=== PATIENT | male | born 1955 | race Caucasian/White ===

== ENCOUNTER 2017-09-16 04:22 | Emergency (ER) | payer OTHER ==
[2017-09-16 04:33] VITALS: BP 170/101
[2017-09-16] MEDS ORDERED: Ondansetron 4 MG/2 ML SDV IVPUSH ONE (05:07)
[2017-09-16] MEDS ORDERED: methylPREDNISolone Sodium Succinate 125 MG/2 ML SDV IVPUSH ONE (05:07)
[2017-09-16] MEDS ORDERED: Sodium Chloride 0.9% 10 ML Syringe FLUSH PRN (05:07)
[2017-09-16] MEDS ORDERED: Sodium Chloride 0.9% 500 ML IV ONE (05:07)
[2017-09-16] MEDS ORDERED: Meclizine 12.5 MG Tab PO ONE (05:41)
--- NOTE | 2017-09-16 05:42 | EDM.PDOC ---
ED HPI GENERAL MEDICAL PROBLEM - General Chief Complaint: Gastrointestinal Problem Stated Complaint: DIZZY/SWEATING/NAUSEA Time Seen by Provider: 09/16/17 05:05 Source of Information: Reports: Patient, RN Notes Reviewed - History of Present Illness INITIAL COMMENTS - FREE TEXT/NARRATIVE: 62 old male with onset of vertigo type dizziness about 2 hours ago at home. He states he awakened with sudden onset of quite severe dizziness, nausea and even became diaphoretic for a period of time. His anus was worse to move his head, better to lie still. No does feel somewhat better on arrival to ED but still does have vertigo type dizziness with motion and still better to lie still and not move his head. No ear discomfort or tendinitis. No chest pain or difficulty breathing. The nausea is better, there's been no vomiting. - Related Data Allergies Allergy/AdvReac Type Severity Reaction Status Date / Time No Known Allergies Allergy Verified 08/21/14 15:04 Home Meds: Home Meds Travoprost [Travatan Z 0.004% Ophth Soln] 1 drop EYEBOTH BEDTIME 08/21/14 [ History] Past Medical History HEENT History: Reports: Cataract Respiratory History: Reports: Other (See Below) Other Respiratory History: nose surgery Gastrointestinal History: Reports: Colon Polyp Neurological History: Reports: Concussion, Other (See Below) Social & Family History - Family History Family Medical History: Noncontributory - Tobacco Use Smoking Status *Q: Never Smoker - Caffeine Use Caffeine Use: Reports: None - Recreational Drug Use Recreational Drug Use: No ED ROS GENERAL - Review of Systems Review Of Systems: See Below Constitutional: Reports: Diaphoresis (Gone). Denies: Fever, Chills HEENT: Denies: Ear Discharge, Ear Pain, Sinus Problem Respiratory: Denies: Shortness of Breath, Pleuritic Chest Pain Cardiovascular: Denies: Chest Pain GI/Abdominal: Reports: Nausea. Denies: Abdominal Pain, Diarrhea, Vomiting Musculoskeletal: Reports: No Symptoms Skin: Denies: Rash Neurological: Denies: Numbness, Tingling, Trouble Speaking, Difficulty Walking, Weakness ED EXAM, DIZZINESS - Physical Exam Exam: See Below General Appearance: Alert, Mild Distress Eye Exam: Bilateral Eye: PERRL Nystagmus: reproducible (Mild horizontal) Ears: Normal External Exam, Normal Canal, Normal TMs Nose: Normal Inspection Throat/Mouth: Normal Inspection, Normal Oropharynx Head Exam: Atraumatic. No: Facial Swelling Neck: Supple Respiratory/Chest: No Respiratory Distress, Lungs Clear, Normal Breath Sounds Cardiovascular: Regular Rate, Rhythm GI/Abdominal: Soft, Non-Tender Neurological: Alert, No Motor/Sensory Deficits, Other (Finger to nose testing normal) Extremities: Normal Inspection, Normal Range of Motion Skin Exam: Warm, Dry, Normal Color EKG INTERPRETATION EKG Date: 09/16/17 Rhythm: NSR [place]: Normal P-Wave: Present QRS: Normal ST-T: Normal Course - Vital Signs Last Recorded V/S: Last Vital Signs Temp 97.5 F 09/16/17 04:28 Pulse 68 09/16/17 04:28 Resp 15 09/16/17 04:28 BP 170/101 H 09/16/17 04:28 Pulse Ox 95 09/16/17 04:28 - Orders/Labs/Meds Orders: Active Orders 24 hr Category Date Time Status EKG 12 Lead [EKG Documentation Completion] [RC] STAT Care 09/16/17 05:07 Active Peripheral IV Care [RC] . DIRECTED Care 09/16/17 05:08 Active Peripheral IV Insertion Adult [OM.PC] Stat Oth 09/16/17 05:07 Ordered Labs: Laboratory Tests 09/16/17 09/16/17 Range/Units 05:14 05:14 WBC 7.93 (4.23-9.07) K/mm3 RBC 5.28 (4.63-6.08) M/mm3 Hgb 15.3 (13.7-17.5) gm/L Hct 45.6 (40.1-51.0) % MCV 86.4 (79.0-92.2) fl MCH 29.0 (25.7-32.2) pg MCHC 33.6 (32.2-35.5) g/dl RDW Std Deviation 40.7 (35.1-43.9) fL Plt Count 227 (163-337) K/mm3 MPV 10.8 (9.4-12.3) fl Neut % (Auto) 70.6 H (34.0-67.9) % Lymph % (Auto) 17.5 L (21.8-53.1) % Rich % (Auto) 8.7 (5.3-12.2) % Eos % (Auto) 2.5 (0.8-7.0) Baso % (Auto) 0.3 (0.1-1.2) % Neut # (Auto) 5.60 H (1.78-5.38) K/mm3 Lymph # (Auto) 1.39 (1.32-3.57) K/mm3 Rich # (Auto) 0.69 (0.30-0.82) K/mm3 Eos # (Auto) 0.20 (0.04-0.54) K/mm3 Baso # (Auto) 0.02 (0.01-0.08) K/mm3 Sodium 141 (136-145) mEq/L Potassium 3.8 (3.5-5.1) mEq/L Chloride 105 (98-107) mEq/L Carbon Dioxide 25 (21-32) mEq/L Anion Gap 14.8 (5-15) BUN 17 (7-18) mg/dL Creatinine 1.1 (0.7-1.3) mg/dL Est Cr Clr Drug Dosing 59.02 mL/min Estimated GFR (MDRD) > 60 (>60) mL/min BUN/Creatinine Ratio 15.5 (14-18) Glucose 166 H (80-115) mg/dL Calcium 8.9 (8.5-10.1) mg/dL Total Bilirubin 1.1 H (0.2-1.0) mg/dL AST 13 L (15-37) U/L ALT 52 (16-63) U/L Alkaline Phosphatase 64 (46-116) U/L Total Protein 7.3 (6.4-8.2) g/dl Albumin 4.0 (3.4-5.0) g/dl Globulin 3.3 gm/dL Albumin/Globulin Ratio 1.2 (1-2) Meds: Medications Discontinued Medications Generic Name Dose Route Start Last Admin Trade Name Freq PRN Reason Stop Dose Admin Sodium Chloride 500 mls @ 999 mls/hr 09/16/17 05:07 09/16/17 05:22 Normal Saline IV 09/16/17 05:37 999 mls/hr .BOLUS ONE Administration Meclizine HCl 12.5 mg 09/16/17 05:41 09/16/17 05:57 Antivert PO 09/16/17 05:42 12.5 mg ONETIME ONE Administration Methylprednisolone Sodium Succinate 125 mg 05/31/18 05:07 09/16/17 05:22 Solu-Medrol IVPUSH 09/16/17 05:08 125 mg ONETIME ONE Administration Ondansetron HCl 4 mg 09/16/17 05:07 09/16/17 05:22 Zofran IVPUSH 09/16/17 05:08 4 mg ONETIME ONE Administration Sodium Chloride 10 ml 09/16/17 05:07 09/16/17 05:22 Saline Flush FLUSH 10 ml ASDIRECTED PRN Administration Keep Vein Open - Re-Assessments/Exams Free Text/Narrative Re-Assessment/Exam: 09/16/17 06:43 Patient is feeling much better after Zofran and Solu-Medrol IV, Antivert 12.5 mg by mouth. Labs are normal. Neuro exam was normal. EKG was normal. Sinus rhythm, no ectopy. He does feel up to going home. 09/16/17 06:44 Departure - Departure Time of Disposition: 06:43 Disposition: Home, Self-Care 01 Condition: Fair Clinical Impression: Labyrinthitis Qualifiers: Laterality: unspecified laterality Qualified Code(s): H83.09 - Labyrinthitis, unspecified ear - Discharge Information Instructions: Labyrinthitis Referrals: Dinesh Fried MD [Primary Care Provider] - Forms: ED Department Discharge Additional Instructions: Rest, moves slowly and carefully, increase activity slowly as tolerated, Antivert or meclizine 12.5 mg or one half of a 25 mg tablet twice daily for the next 3 days and thereafter as needed. That is available OTC, you will need to ask a pharmacist for the medication. Follow-up clinic as needed if symptoms not resolving within 2-3 days as expected, return to ED as needed if symptoms worsening in any way. - My Orders Last 24 Hours: My Active Orders 09/16/17 05:07 EKG 12 Lead [EKG Documentation Completion] [RC] STAT Peripheral IV Insertion Adult [OM.PC] Stat 09/16/17 05:08 Peripheral IV Care [RC] . DIRECTED - Assessment/Plan Last 24 Hours: My Active Orders 09/16/17 05:07 EKG 12 Lead [EKG Documentation Completion] [RC] STAT Peripheral IV Insertion Adult [OM.PC] Stat 09/16/17 05:08 Peripheral IV Care [RC] . DIRECTED
== END 2017-09-16 06:53 | disposition home or self-care (01) ==
LOC: JD.ED 04:22
DX: H83.09 Labyrinthitis, unspecified ear (principal)
CPT/HCPCS: 36415; 80053; 85025; 93005; 96374; 96375; 99284; A9270; J2405; J2930; J7040; J7050; 93010

== ENCOUNTER 2018-05-16 07:37 | Emergency (ER) | payer OTHER ==
[2018-05-16 07:52] VITALS: BP 168/100
[2018-05-16] MEDS ORDERED: Sodium Chloride 0.9% 10 ML Syringe FLUSH PRN (08:16)
[2018-05-16] MEDS ORDERED: Ondansetron 4 MG/2 ML SDV IVPUSH ONE (08:16)
[2018-05-16] MEDS ORDERED: Sodium Chloride 0.9% 1,000 ML IV ONE (08:16)
[2018-05-16] MEDS ORDERED: Meclizine 12.5 MG Tab PO ONE (08:35)
--- NOTE | 2018-05-16 09:17 | EDM.PDOC ---
ED HPI GENERAL MEDICAL PROBLEM - General Chief Complaint: Neurological Problem Stated Complaint: DIZZINESS/VOMITING Time Seen by Provider: 05/16/18 07:50 Source of Information: Reports: Patient History Limitations: Reports: No Limitations - History of Present Illness INITIAL COMMENTS - FREE TEXT/NARRATIVE: The patient is a 63-year-old male with a chief complaint of dizziness. He states that the dizziness is more of a lightheadedness and a feeling like he might pass out, especially when he stands up. It's been going on for a week. There is no provoking factor. He did not have any actual syncope. Today when he woke up the dizziness felt significantly worse. He feels unsteady on his feet. He has some slight room spinning sensation but more of a lightheaded sensation. No vision change. No headache. No weakness. No confusion. This morning he vomited twice. He still feels mildly nauseated. No diarrhea. No abdominal pain. No fever. No recent illness. No nasal congestion or sore throat or cough. Feels somewhat similar to an episode he had a year ago at which time he was treated with meclizine and improved. - Related Data Allergies Allergy/AdvReac Type Severity Reaction Status Date / Time No Known Allergies Allergy Verified 05/16/18 07:52 Home Meds: Home Meds Travoprost [Travatan Z 0.004% Ophth Soln] 1 drop EYEBOTH BEDTIME 08/21/14 [ History] Meclizine [Antivert] 25 mg PO TID #20 tab.chew 05/16/18 [Rx] Ondansetron [Zofran ODT] 4 mg PO Q6H PRN #20 tab.dis 05/16/18 [Rx] Past Medical History HEENT History: Reports: Cataract, Impaired Vision Cardiovascular History: Reports: Hypertension Respiratory History: Reports: Other (See Below) Other Respiratory History: nose surgery Gastrointestinal History: Reports: Colon Polyp, GERD Musculoskeletal History: Reports: Arthritis Neurological History: Reports: Concussion, Vertigo, Other (See Below) Other Endocrine/Metabolic History: borderline diabetic - Past Surgical History HEENT Surgical History: Reports: Cataract Surgery Social & Family History - Family History Family Medical History: Noncontributory - Tobacco Use Smoking Status *Q: Never Smoker - Caffeine Use Caffeine Use: Reports: Coffee - Recreational Drug Use Recreational Drug Use: No ED ROS GENERAL - Review of Systems Review Of Systems: See Below Constitutional: Denies: Fever HEENT: Denies: Vision Change Respiratory: Denies: Cough Cardiovascular: Denies: Chest Pain GI/Abdominal: Reports: Nausea. Denies: Abdominal Pain, Vomiting Musculoskeletal: Reports: No Symptoms Skin: Reports: No Symptoms Neurological: Reports: Dizziness. Denies: Headache ED EXAM, NEURO - Physical Exam Exam: See Below Exam Limited By: No Limitations General Appearance: Alert, WD/WN, No Apparent Distress Eye Exam: Bilateral Eye: EOMI (no nystagmus ), Normal Inspection, PERRL Ears: Normal External Exam Nose: Normal Inspection Throat/Mouth: Normal Inspection, Normal Oropharynx, Normal Voice, No Airway Compromise Head Exam: Atraumatic, Normocephalic Neck: Normal Inspection, Supple, Non-Tender, Full Range of Motion Respiratory/Chest: No Respiratory Distress, Lungs Clear, Normal Breath Sounds Cardiovascular: Normal Peripheral Pulses, Regular Rate, Rhythm, No Murmur GI/Abdominal: Soft, Non-Tender, No Distention. No: Rebound Rectal (Males) Exam: Normal Exam Neurological: Alert, Normal Mood/Affect, Normal Dorsiflexion, CN II-XII Intact, Normal Plantar Flexion, Oriented x 3 Course - Vital Signs Last Recorded V/S: Last Vital Signs Temp 36.2 C 05/16/18 07:46 Pulse 81 05/16/18 07:46 Resp 14 05/16/18 07:46 BP 168/100 H 05/16/18 07:46 Pulse Ox 100 05/16/18 07:46 Orthostatic Blood Pressure [ 159/99 Standing] Orthostatic Blood Pressure [ 155/105 Sitting] Orthostatic Blood Pressure [ 168/100 Supine] - Orders/Labs/Meds Orders: Active Orders 24 hr Category Date Time Status EKG 12 Lead [EKG Documentation Completion] [RC] STAT Care 05/16/18 08:16 Active Peripheral IV Care [RC] . DIRECTED Care 05/16/18 08:16 Active Peripheral IV Care [RC] . DIRECTED Care 05/16/18 08:17 Active Peripheral IV Insertion Adult [OM.PC] Routine Oth 05/16/18 08:16 Ordered Labs: Laboratory Tests 05/16/18 05/16/18 05/16/18 Range/Units 08:51 08:51 09:18 WBC 9.99 H (4.23-9.07) K/mm3 RBC 5.53 (4.63-6.08) M/mm3 Hgb 16.0 (13.7-17.5) gm/L Hct 47.8 (40.1-51.0) % MCV 86.4 (79.0-92.2) fl MCH 28.9 (25.7-32.2) pg MCHC 33.5 (32.2-35.5) g/dl RDW Std Deviation 41.2 (35.1-43.9) fL Plt Count 226 (163-337) K/mm3 MPV 10.7 (9.4-12.3) fl Neut % (Auto) 79.9 H (34.0-67.9) % Lymph % (Auto) 10.3 L (21.8-53.1) % [place] % (Auto) 7.1 (5.3-12.2) % Eos % (Auto) 1.9 (0.8-7.0) Baso % (Auto) 0.4 (0.1-1.2) % Neut # (Auto) 7.98 H (1.78-5.38) K/mm3 Lymph # (Auto) 1.03 L (1.32-3.57) K/mm3 [place] # (Auto) 0.71 (0.30-0.82) K/mm3 Eos # (Auto) 0.19 (0.04-0.54) K/mm3 Baso # (Auto) 0.04 (0.01-0.08) K/mm3 Sodium 141 (136-145) mEq/L Potassium 4.3 (3.5-5.1) mEq/L Chloride 105 (98-107) mEq/L Carbon Dioxide 27 (21-32) mEq/L Anion Gap 13.3 (5-15) BUN 12 (7-18) mg/dL Creatinine 1.1 (0.7-1.3) mg/dL Est Cr Clr Drug Dosing 58.24 mL/min Estimated GFR (MDRD) > 60 (>60) mL/min BUN/Creatinine Ratio 10.9 L (14-18) Glucose 169 H (80-115) mg/dL Calcium 9.1 (8.5-10.1) mg/dL Total Bilirubin 1.4 H (0.2-1.0) mg/dL AST 27 (15-37) U/L ALT 81 H (16-63) U/L Alkaline Phosphatase 76 (46-116) U/L Troponin I < 0.017 (0.00-0.056) ng/mL Total Protein 7.5 (6.4-8.2) g/dl Albumin 3.9 (3.4-5.0) g/dl Globulin 3.6 gm/dL Albumin/Globulin Ratio 1.1 (1-2) Urine Color Yellow (Yellow) Urine Appearance Slt cloudy H (Clear) Urine pH 7.0 (5.0-8.0) Ur Specific [place] 1.025 (1.005-1.030) Urine Protein 2+ H (Negative) Urine Glucose (UA) Negative (Negative) Urine Ketones Negative (Negative) Urine Occult Blood Negative (Negative) Urine Nitrite Negative (Negative) Urine Bilirubin Negative (Negative) Urine Urobilinogen 0.2 (0.2-1.0) Ur Leukocyte Esterase Negative (Negative) Urine RBC 0-5 (0-5) /hpf Urine WBC 0-5 (0-5) /hpf Ur Epithelial Cells 0-5 (0-5) /hpf Urine Bacteria Few (FEW) /hpf Hyaline Casts 0-5 (0-5) /lpf Urine Mucus Moderate H (FEW) /hpf Meds: Medications Discontinued Medications Generic Name Dose Route Start Last Admin Trade Name Freq PRN Reason Stop Dose Admin Sodium Chloride 1,000 mls @ 1,000 mls/hr 05/16/18 08:16 05/16/18 08:57 Normal Saline IV 05/16/18 09:15 1,000 mls/hr ONETIME ONE Administration Meclizine HCl 12.5 mg 05/16/18 08:35 05/16/18 08:57 Antivert PO 05/16/18 08:36 12.5 mg ONETIME ONE Administration Ondansetron HCl 4 mg 05/16/18 08:16 05/16/18 08:57 Zofran IVPUSH 05/16/18 08:17 4 mg ONETIME ONE Administration Sodium Chloride 10 ml 05/16/18 08:16 05/16/18 08:55 Saline Flush FLUSH 10 ml ASDIRECTED PRN Administration Keep Vein Open - Re-Assessments/Exams Free Text/Narrative Re-Assessment/Exam: 05/16/18 09:50 Feeling much better after zofran and meclizine. He has a normal neurological exam. He has no nystagmus on exam. He describes some pre-syncope symptoms and some mild vertigo symptoms, definite etiology not clear. His blood pressure here today is good. He's on two anti-hypertensives which he takes at night, not able to recall what one of them is but the other is losartan. Given improvement in symptoms, normal vitals, normal labs, normal exam, will dc home. Will rx ondansetron and meclizine. Encouraged PCP f/u [facility]YUDMIL[facility] if symptoms don't resolve, ED return precautions if worse. Departure - Departure Time of Disposition: 09:52 Disposition: Home, Self-Care 01 Clinical Impression: Dizziness - Discharge Information Prescriptions: Meclizine [Antivert] 25 mg PO TID #20 tab.chew Ondansetron [Zofran ODT] 4 mg PO Q6H PRN #20 tab.dis PRN Reason: Nausea Referrals: Dinesh Fried MD [Primary Care Provider] - Forms: ED Department Discharge Additional Instructions: 1. Take ondansetron (zofran) as needed for nausea. Take meclizine as needed for dizziness. 2. Drink plenty of fluids 3. Follow up with your primary care provider as soon as possible if symptoms don 't resolve by the end of this week 4. Return to the ED as needed for any worsening or new concerning symptoms, such as passing out, chest pain, difficulty breathing, confusion or weakness, or any other concerning symptoms - My Orders Last 24 Hours: My Active Orders 05/16/18 08:16 EKG 12 Lead [EKG Documentation Completion] [RC] STAT Peripheral IV Care [RC] . DIRECTED Peripheral IV Insertion Adult [OM.PC] Routine 05/16/18 08:17 Peripheral IV Care [RC] . DIRECTED - Assessment/Plan Last 24 Hours: My Active Orders 05/16/18 08:16 EKG 12 Lead [EKG Documentation Completion] [RC] STAT Peripheral IV Care [RC] . DIRECTED Peripheral IV Insertion Adult [OM.PC] Routine 05/16/18 08:17 Peripheral IV Care [RC] . DIRECTED
== END 2018-05-16 10:08 | disposition home or self-care (01) ==
LOC: JD.ED 07:37
DX: R42 Dizziness and giddiness (principal); I10 Essential (primary) hypertension
CPT/HCPCS: 36415; 80053; 81001; 84484; 85025; 93005; 96361; 96374; 99284; A9270; J2405; J7040

== ENCOUNTER 2021-05-28 06:25 | Emergency (ER) | payer MEDICARE ==
[2021-05-28 06:56] VITALS: BP 137/93; PULSE 87
[2021-05-28] MEDS ORDERED: Sodium Chloride 0.9% 10 ML Syringe FLUSH PRN (06:59)
[2021-05-28] MEDS ORDERED: Ondansetron 4 MG/2 ML SDV IVPUSH ONE (07:14)
[2021-05-28] MEDS ORDERED: Sodium Chloride 0.9% 1,000 ML IV SCH (07:15)
[2021-05-28 07:39] LABS: CORONAVIRUS COVID-19 NAA NEGATIVE (NEGATIVE)
[2021-05-28] MEDS ORDERED: Lactated Ringers 1,000 ML IV ONE (10:05)
== END 2021-05-28 13:21 | disposition home or self-care (01) ==
LOC: JD.ED 06:25
DX: E86.0 Dehydration (principal); B34.9 Viral infection, unspecified; I10 Essential (primary) hypertension; K21.9 Gastro-esophageal reflux disease without esophagitis; Z79.899 Other long term (current) drug therapy; Z20.822 Contact with and (suspected) exposure to COVID-19
CPT/HCPCS: 0240U; 36415; 71045; 71045-26; 80053; 81001; 84484; 85025; 86140; 93005; 93010; 96374; 99284-25; 99285; J2405; J7030; J7120

== ENCOUNTER 2025-02-01 09:27 | Day surgery (SDC) | payer MEDICARE, OTHER ==
[~2025-02-01 09:27] MED LIST: Sodium Chloride 0.9% 10 ML Syringe FLUSH PRN; Sodium Chloride 0.9% 10 ML Syringe FLUSH SCH
[2025-02-01] MEDS ORDERED: EPINEPHrine 1 MG/ML SDV ONE (09:43)
[2025-02-01] MEDS: Lactated Ringers 1,000 ML IV SCH (09:45)
[2025-02-01] MEDS ORDERED: Ondansetron 4 MG/2 ML SDV ONE (10:10)
[2025-02-01] MEDS ORDERED: Dexamethasone 4 MG/ML 5 ML MDV ONE (10:10)
[2025-02-01] MEDS ORDERED: dexmedeTOMIDine HCl 200 MCG/2 ML SDV ONE (10:10)
[2025-02-01] MEDS ORDERED: Propofol 200 MG/20 ML SDV ONE (10:11)
[2025-02-01] MEDS ORDERED: fentaNYL 250 MCG/5 ML SDV ONE (10:11)
[2025-02-01] MEDS ORDERED: Phenylephrine 1% 10 MG/ML SDV ONE (10:11)
[2025-02-01] MEDS ORDERED: Ketamine HCL/NACL, ISO-OSM 50 MG/5 ML Syringe ONE (10:11)
[2025-02-01] MEDS ORDERED: Lactated Ringers 1,000 ML IV ONE (11:55)
[2025-02-01] MEDS ORDERED: Ketorolac 30 MG/ML SDV ONE (11:57)
[2025-02-01] MEDS: fentaNYL 100 MCG/2 ML SDV IVPUSH PRN (12:57)
[2025-02-01] MEDS: Ondansetron 4 MG/2 ML SDV IVPUSH PRN (13:30)
[2025-02-01] MEDS: droPERidol 2.5 MG/ML SDV IV PRN (14:53)
[2025-02-01 16:05] VITALS: BP 138/78
[2025-02-01 16:17] VITALS: PULSE 80
== END 2025-02-01 16:22 | disposition home or self-care (01) ==
LOC: JD.SDS 09:27
PROVIDERS: ATTEND Surgery
DX: K80.10 Calculus of gallbladder with chronic cholecystitis without obstruction (principal); K29.50 Unspecified chronic gastritis without bleeding; K31.7 Polyp of stomach and duodenum; K21.9 Gastro-esophageal reflux disease without esophagitis; I10 Essential (primary) hypertension; E11.9 Type 2 diabetes mellitus without complications; Z88.5 Allergy status to narcotic agent; Z79.84 Long term (current) use of oral hypoglycemic drugs; Z79.899 Other long term (current) drug therapy
CPT/HCPCS: 43239; 47562; A9270; J0169; J0665; J0690; J1100; J1790; J1885; J2405; J2704; J3010; J7120; 00790; 99100; J2371; J3490